=== PATIENT | male | born 1980 | race Caucasian/White ===

== ENCOUNTER 2017-01-05 06:58 | Day surgery (SDC) | payer OTHER ==
[~2017-01-05] VITALS: Ht 172.7 cm; Wt 74.0 kg
[2017-01-05] VITALS (12 sets, daily range): BP systolic 105–135; BP diastolic 50–70; PULSE 45–65; RESP 11–20; Ht 172.7 cm; Wt 74.0 kg
--- NOTE | 2017-01-05 08:36 | HPN ---
Date/Time of Note Date/Time of Note DATE: 01/05/17 TIME: 08:36 Interval H&P Admission Note Pt. seen H&P reviewed: No system changes TERRANCE OAKLEY MD Jan 05, 2017 08:36
--- NOTE | 2017-01-05 08:37 | SIPON ---
Date/Time of Note Date/Time of Note DATE: 01/05/17 TIME: 08:36 Operative Report Preoperative Diagnosis right carpal tunnel syndrome Postoperative Diagnosis same Operation/Procedure Performed carpal tunnel release Surgeon ely salamanca renee Anesthesia: MAC Estimated blood loss: minimal Transfusion Required none Specimen none Grafts/Implants none Complications none TERRANCE OAKLEY MD Jan 05, 2017 08:37
[2017-01-05] MEDS ORDERED: PROPOFOL 100 ML ONE (10:34)
[2017-01-05] MEDS ORDERED: MEPERIDINE 25 MG INJ IV PRN (11:00)
[2017-01-05] MEDS ORDERED: LABETALOL HCL 20MG INJ IV PRN (11:00)
[2017-01-05] MEDS ORDERED: hydrALAzine 20 MG INJ IV PRN (11:00)
[2017-01-05] MEDS ORDERED: METOCLOPRAMIDE 10 MG INJ IV PRN (11:00)
[2017-01-05] MEDS ORDERED: EPHEDrine SULFATE 50 MG/5 ML SYG IV PRN (11:00)
[2017-01-05] MEDS ORDERED: DIPHENHYDRAMINE 50 MG INJ IV PRN (11:00)
[2017-01-05] MEDS ORDERED: OXYCODONE/ACETAMINOPHEN (5/325) TAB PO PRN ×2 (11:00)
[2017-01-05] MEDS ORDERED: ONDANSETRON 4 MG INJ IV PRN (11:00)
[2017-01-05] MEDS ORDERED: FENTAnyl 50 MCG/ML VIAL IV PRN ×3 (11:00)
[2017-01-05] MEDS ORDERED: KETOROLAC 30 MG INJ IV PRN (11:00)
[2017-01-05] MEDS ORDERED: HYDROmorphONE (0.2 MG/ML) 10ML SYG IV PRN ×3 (11:00)
[2017-01-05] MEDS ORDERED: NEOSTIGMINE 3 MG/3 ML SYRINGE ONE (11:20)
[2017-01-05] MEDS ORDERED: ROCURONIUM 50 MG INJ ONE (11:20)
[2017-01-05] MEDS ORDERED: LIDOCAINE 2% (SDV) 5 ML INJ ONE (11:20)
[2017-01-05] MEDS ORDERED: GLYCOPYRROLATE 0.4 MG INJ ONE (11:20)
[2017-01-05] MEDS ORDERED: KETOROLAC 30 MG INJ ONE (11:21)
[2017-01-05] MEDS ORDERED: CEFAZOLIN 1 GM INJ ONE (11:21)
--- NOTE | 2017-01-06 09:03 | OPR ---
DATE OF OPERATION: 01/05/2017 PREOPERATIVE DIAGNOSIS: Right hand carpal tunnel syndrome. POSTOPERATIVE DIAGNOSIS: Right hand carpal tunnel syndrome. PROCEDURE: Right hand carpal tunnel release. SURGEON: Maurilio Middleton MD NUTRITIONAL ASSISTANT: CARLITO Rondon ANESTHESIOLOGIST: Jess. ANESTHESIA TECHNIQUE: Sedation by the anesthesiologist. SURGICAL PAUSE: I reexamined the patient in the preop holding area. With a marking pen, I ethan in the planned surgical incision. I showed the planned surgical incision to the patient. We confirmed the operative procedure and plan with the patient awake. INFORMED CONSENT: At the time we scheduled the operative procedure, we talked to the patient about the risks and benefits of surgery, mentioning operative mortality, wound infection, nerve injury, good results, bad results, and potential complications. The patient signed the note confirm that conversation. OPERATIVE PROCEDURE: The patient was taken to surgery. Anesthetized as above. Sterile prep and drape performed. A pneumatic tourniquet inflated to 250 mmHg. A 1 inch incision was made in the palm over the transverse carpal ligament, vertical in orientation. Dissection carried down to the ligament, made a small johnathan in the ligament, pasted a mosquieto clamp to pull the ligament away from the deep structures. divided the liagment distally and proximally, divided the transverse carpal ligament. The wound was closed with an interrupted Vicryl rapid suture. A bulky Barrow type cotton dressing was applied. DISCHARGE MEDICATIONS: 1. Hydrocodone with acetaminophen. 2. Keflex. FOLLOWUP: Will be in our office in 1 week. Dictated By: Maurilio Middleton MD /[email or web address] /Document#: [id number] STEFAN
--- NOTE | 2017-01-06 09:03 | OPR ---
DATE OF OPERATION: 01/05/2017 PREOPERATIVE DIAGNOSIS: Right hand carpal tunnel syndrome. POSTOPERATIVE DIAGNOSIS: Right hand carpal tunnel syndrome. PROCEDURE: Right hand carpal tunnel release. SURGEON: Maurilio Middleton MD PRIMARY CARE PROVIDER: CARLITO Rondon ANESTHESIOLOGIST: Jess. ANESTHESIA TECHNIQUE: Sedation by the anesthesiologist. SURGICAL PAUSE: I reexamined the patient in the preop holding area. With a marking pen, I ethan in the planned surgical incision. I showed the planned surgical incision to the patient. We confirmed the operative procedure and plan with the patient awake. INFORMED CONSENT: At the time we scheduled the operative procedure, we talked to the patient about the risks and benefits of surgery, mentioning operative mortality, wound infection, nerve injury, good results, bad results, and potential complications. The patient signed the note confirm that conversation. OPERATIVE PROCEDURE: The patient was taken to surgery. Anesthetized as above. Sterile prep and drape performed. A pneumatic tourniquet inflated to 250 mmHg. A 1 inch incision was made in the palm over the transverse carpal ligament, vertical in orientation. Dissection carried down to the ligament, made a small johnathan in the ligament, pasted a mosquieto clamp to pull the ligament away from the deep structures. divided the liagment distally and proximally, divided the transverse carpal ligament. The wound was closed with an interrupted Vicryl rapid suture. A bulky Barrow type cotton dressing was applied. DISCHARGE MEDICATIONS: 1. Hydrocodone with acetaminophen. 2. Keflex. FOLLOWUP: Will be in our office in 1 week. Dictated By: Maurilio Middleton MD /[email or web address] /Document#: [id number] STEFAN
--- NOTE | 2017-01-06 09:03 | OPR ---
DATE OF OPERATION: 01/05/2017 PREOPERATIVE DIAGNOSIS: Right hand carpal tunnel syndrome. POSTOPERATIVE DIAGNOSIS: Right hand carpal tunnel syndrome. PROCEDURE: Right hand carpal tunnel release. SURGEON: Maurilio Middleton MD INTERIOR DECORATOR: CARLITO Rondon ANESTHESIOLOGIST: Jess. ANESTHESIA TECHNIQUE: Sedation by the anesthesiologist. SURGICAL PAUSE: I reexamined the patient in the preop holding area. With a marking pen, I ethan in the planned surgical incision. I showed the planned surgical incision to the patient. We confirmed the operative procedure and plan with the patient awake. INFORMED CONSENT: At the time we scheduled the operative procedure, we talked to the patient about the risks and benefits of surgery, mentioning operative mortality, wound infection, nerve injury, good results, bad results, and potential complications. The patient signed the note confirm that conversation. OPERATIVE PROCEDURE: The patient was taken to surgery. Anesthetized as above. Sterile prep and drape performed. A pneumatic tourniquet inflated to 250 mmHg. A 1 inch incision was made in the palm over the transverse carpal ligament, vertical in orientation. Dissection carried down to the ligament, made a small johnathan in the ligament, pasted a mosquieto clamp to pull the ligament away from the deep structures. divided the liagment distally and proximally, divided the transverse carpal ligament. The wound was closed with an interrupted Vicryl rapid suture. A bulky Barrow type cotton dressing was applied. DISCHARGE MEDICATIONS: 1. Hydrocodone with acetaminophen. 2. Keflex. FOLLOWUP: Will be in our office in 1 week. Dictated By: Maurilio Middleton MD /[email or web address] /Document#: [id number] STEFAN
== END 2017-01-05 14:45 | disposition home or self-care (01) ==
LOC: SDS 06:58
PROVIDERS: ATTEND Orthopaedic Surgery Hand Surgery
DX: G56.01 Carpal tunnel syndrome, right upper limb (principal)
CPT/HCPCS: 64721; J0690; J2405; J3010; Z7512; Z7610; J1885; J2710

== ENCOUNTER 2017-09-07 06:35 | Day surgery (SDC) | END 2017-09-07 12:05 | disposition home or self-care (01) ==